=== PATIENT | male | born 1995 | race Two or more races ===

== ENCOUNTER 2017-08-03 10:33 | Emergency (ER) | payer BC ==
[2017-08-03] MEDS ORDERED: NS 0.9% 1000 ML* 2,000 ML IV ONE (11:04)
[2017-08-03 11:26] LABS: Hematocrit 44 % (42-52); Hemoglobin 15.4 g/dl (14.0-18.0); Mean Corpuscular HGB Conc 35 g/dl (31-36); Mean Corpuscular Hemoglobin 32 pg (27-31); Mean Corpuscular Volume 91 fL (80-94); Mean Platelet Volume 7 um3 (7.4-10.4); Red Blood Count 4.77 10^6/ul (4.0-5.4); Red Cell Distribution Width 13 % (10.5-15); White Blood Count 5.6 10^3/ul (3.5-10.8)
--- NOTE | 2017-08-03 11:34 | RAD ---
INDICATION: Syncope. COMPARISON: There are no prior studies available for comparison. TECHNIQUE: A portable view of the chest was obtained. FINDINGS: Cardiac and mediastinal contours appear to be within normal limits. The lungs are clear. No pleural effusion is seen. IMPRESSION: NO EVIDENCE FOR ACUTE DISEASE.
[2017-08-03 11:39] LABS: ALT 12 U/L (7-52); AST 18 U/L (13-39); Albumin 4.9 g/dL (3.2-5.2); Alkaline Phosphatase 63 U/L (34-104); Anion Gap 8 mmol/L (2-11); BUN/Creatinine Ratio 14.8 (8-20); Blood Urea Nitrogen 12 mg/dL (6-24); C Reactive Protein < 1.00 mg/L (< 5.00); CO2 Carbon Dioxide 26 mmol/L (22-32); Calcium 9.6 mg/dL (8.6-10.3); Chloride 103 mmol/L (101-111); EGFR African American 154.7 (>60); EGFR Non-African American 120.3 (>60); Globulin 2.6 g/dL (2-4); Glucose 90 mg/dL (70-100); Lipase 36 U/L (11.0-82.0); Magnesium 2.2 mg/dL (1.9-2.7); Potassium 3.7 mmol/L (3.5-5.0); Sodium 137 mmol/L (133-145); Total Protein 7.5 g/dL (6.4-8.9)
[2017-08-03 12:17] LABS: Urine Bilirubin Negative (Negative); Urine Glucose Negative (Negative); Urine Nitrite Negative (Negative)
--- NOTE | 2017-08-03 13:40 | ED ---
Sadiq Lira Angela, scribed for Jeremy Hernandez MD on 08/03/17 at 1111 . Syncope/Near Syncope - HPI Summary HPI Summary: This pt is a 22 y/[facility] 0430 today. Pt reports he was sitting down reading late last night about [employer] and thought it was disgusting, he got anxious and nauseous. He states feeling light-headed and stood up, immediately after pt fell down and had a syncopal episode. Pt reports he woke up a few minutes later and he couldn' t move his arms for about 10 minutes. Pt notes that yesterday he had coffee and was all day hyperactive. He states that he usually doesn't drink coffee. Pt denies chest pain, abd pain, vomiting, visual changes, SOB. He endorses normal PO intake. He states having occasional heart palpitations but was told by his PCP it was normal. No PMHx. - History Of Current Complaint Chief Complaint: EDSyncope Time Seen by Provider: 08/03/17 10:50 Hx Obtained From: Patient Onset/Duration: Sudden Onset Context: Unwitnessed Activity At Onset: Other - reading "something disgusting" Associated Signs And Symptoms: Palpitations - Allergies/Home Medications Allergies/Adverse Reactions: Allergies Allergy/AdvReac Type Severity Reaction Status Date / Time No Known Allergies Allergy Verified 10/06/16 21:40 PMH/Surg Hx/FS Hx/Imm Hx Endocrine/Hematology History: Denies: Hx Diabetes, Hx Anemia Cardiovascular History: Denies: Hx Hypertension Neurological History: Denies: Hx Seizures Psychiatric History: Reports: Hx Anxiety Denies: Hx Eating Disorder, Hx of Violent Episodes Against Others Infectious Disease History: Denies: Traveled Outside the [place] in Last 30 Days - Family History Known Family History: Positive: Diabetes - Social History Alcohol Use: None Substance Use Type: Reports: None Smoking Status (MU): Never Smoked Tobacco Review of Systems Negative: Fever, Chills Eyes: Negative Negative: Blurred Vision ENT: Negative Positive: Palpitations. Negative: Chest Pain Negative: Shortness Of Breath Positive: Nausea. Negative: Abdominal Pain, Vomiting Genitourinary: Negative Musculoskeletal: Negative Skin: Negative Positive: Syncope - 1 syncopal episode. Negative: Headache, Weakness, Numbness Positive: Anxious All Other Systems Reviewed And Are Negative: Yes Physical Exam Triage Information Reviewed: Yes Vital Signs On Initial Exam: Initial Vitals Temp Pulse Resp BP Pulse Ox 98.6 F 67 20 122/80 98 08/03/17 10:35 08/03/17 10:35 08/03/17 10:35 08/03/17 10:35 08/03/17 10:35 Vital Signs Reviewed: Yes Appearance: Positive: Well-Appearing, No Pain Distress Skin: Positive: Warm, Skin Color Reflects Adequate Perfusion, Dry Head/Face: Positive: Normal Head/Face Inspection Eyes: Positive: EOMI, WAQAR ENT: Positive: Normal ENT inspection Neck: Positive: Supple, Nontender Respiratory/Lung Sounds: Positive: Clear to Auscultation, Breath Sounds Present Cardiovascular: Positive: RRR Abdomen Description: Positive: Nontender, Soft Bowel Sounds: Positive: Present Musculoskeletal: Positive: Normal, Strength/ROM Intact Neurological: Positive: Normal, Sensory/Motor Intact, Alert, Oriented to Person Place, Time Psychiatric: Positive: Affect/Mood Appropriate Diagnostics - Vital Signs Vital Signs Temp Pulse Resp BP Pulse Ox 08/03/17 10:35 98.6 F 67 20 122/80 98 - Laboratory Lab Results: Lab Results 08/03/17 08/03/17 08/03/17 Range/Units 11:06 11:06 11:06 WBC 5.6 (3.5-10.8) 10^3/ul RBC 4.77 (4.0-5.4) 10^6/ul Hgb 15.4 (14.0-18.0) g/dl Hct 44 (42-52) % MCV 91 (80-94) fL MCH 32 H (27-31) pg MCHC 35 (31-36) g/dl RDW 13 (10.5-15) % Plt Count 158 (150-450) 10^3/ul MPV 7 L (7.4-10.4) um3 Neut % (Auto) 63.7 (38-83) % Lymph % (Auto) 26.8 (25-47) % Cascade % (Auto) 8.5 (1-9) % Eos % (Auto) 0.4 (0-6) % Baso % (Auto) 0.6 (0-2) % Absolute Neuts (auto) 3.6 (1.5-7.7) 10^3/ul Absolute Lymphs (auto) 1.5 (1.0-4.8) 10^3/ul Absolute Monos (auto) 0.5 (0-0.8) 10^3/ul Absolute Eos (auto) 0 (0-0.6) 10^3/ul Absolute Basos (auto) 0 (0-0.2) 10^3/ul Absolute Nucleated RBC 0 10^3/ul Nucleated RBC % 0.1 INR (Anticoag Therapy) 1.06 (0.89-1.11) APTT 25.4 L (26.0-36.3) seconds Sodium 137 (133-145) mmol/L Potassium 3.7 (3.5-5.0) mmol/L Chloride 103 (101-111) mmol/L Carbon Dioxide 26 (22-32) mmol/L Anion Gap 8 (2-11) mmol/L BUN 12 (6-24) mg/dL Creatinine 0.81 (0.67-1.17) mg/dL Est GFR ( Amer) 154.7 (>60) Est GFR (Non-Af Amer) 120.3 (>60) BUN/Creatinine Ratio 14.8 (8-20) Glucose 90 (70-100) mg/dL Lactic Acid (0.5-2.0) mmol/L Calcium 9.6 (8.6-10.3) mg/dL Magnesium 2.2 (1.9-2.7) mg/dL Total Bilirubin 1.40 H (0.2-1.0) mg/dL AST 18 (13-39) U/L ALT 12 (7-52) U/L Alkaline Phosphatase 63 (34-104) U/L Troponin I 0.00 (<0.04) ng/mL C-Reactive Protein < 1.00 (< 5.00) mg/L Total Protein 7.5 (6.4-8.9) g/dL Albumin 4.9 (3.2-5.2) g/dL Globulin 2.6 (2-4) g/dL Albumin/Globulin Ratio 1.9 (1-3) Lipase 36 (11.0-82.0) U/L TSH 1.70 (0.34-5.60) mcIU/mL Urine Color Urine Appearance Urine pH (5-9) Ur Specific [place] (1.010-1.030) Urine Protein (Negative) Urine Ketones (Negative) Urine Blood (Negative) Urine Nitrate (Negative) Urine Bilirubin (Negative) Urine Urobilinogen (Negative) Ur Leukocyte Esterase (Negative) Urine Glucose (Negative) 08/03/17 08/03/17 Range/Units 11:06 11:48 WBC (3.5-10.8) 10^3/ul RBC (4.0-5.4) 10^6/ul Hgb (14.0-18.0) g/dl Hct (42-52) % MCV (80-94) fL MCH (27-31) pg MCHC (31-36) g/dl RDW (10.5-15) % Plt Count (150-450) 10^3/ul MPV (7.4-10.4) um3 Neut % (Auto) (38-83) % Lymph % (Auto) (25-47) % Cascade % (Auto) (1-9) % Eos % (Auto) (0-6) % Baso % (Auto) (0-2) % Absolute Neuts (auto) (1.5-7.7) 10^3/ul Absolute Lymphs (auto) (1.0-4.8) 10^3/ul Absolute Monos (auto) (0-0.8) 10^3/ul Absolute Eos (auto) (0-0.6) 10^3/ul Absolute Basos (auto) (0-0.2) 10^3/ul Absolute Nucleated RBC 10^3/ul Nucleated RBC % INR (Anticoag Therapy) (0.89-1.11) APTT (26.0-36.3) seconds Sodium (133-145) mmol/L Potassium (3.5-5.0) mmol/L Chloride (101-111) mmol/L Carbon Dioxide (22-32) mmol/L Anion Gap (2-11) mmol/L BUN (6-24) mg/dL Creatinine (0.67-1.17) mg/dL Est GFR ( Amer) (>60) Est GFR (Non-Af Amer) (>60) BUN/Creatinine Ratio (8-20) Glucose (70-100) mg/dL Lactic Acid 1.4 (0.5-2.0) mmol/L Calcium (8.6-10.3) mg/dL Magnesium (1.9-2.7) mg/dL Total Bilirubin (0.2-1.0) mg/dL AST (13-39) U/L ALT (7-52) U/L Alkaline Phosphatase (34-104) U/L Troponin I (<0.04) ng/mL C-Reactive Protein (< 5.00) mg/L Total Protein (6.4-8.9) g/dL Albumin (3.2-5.2) g/dL Globulin (2-4) g/dL Albumin/Globulin Ratio (1-3) Lipase (11.0-82.0) U/L TSH (0.34-5.60) mcIU/mL Urine Color Straw Urine Appearance Clear Urine pH 7.0 (5-9) Ur Specific [place] 1.006 L (1.010-1.030) Urine Protein Negative (Negative) Urine Ketones Negative (Negative) Urine Blood Negative (Negative) Urine Nitrate Negative (Negative) Urine Bilirubin Negative (Negative) Urine Urobilinogen Negative (Negative) Ur Leukocyte Esterase Negative (Negative) Urine Glucose Negative (Negative) Result Diagrams: 08/03/17 11:06 08/03/17 11:06 Lab Statement: Any lab studies that have been ordered have been reviewed, and results considered in the medical decision making process. - Radiology Chest XR Xray Interpretation: No Acute Changes - IMPRESSION: No evidence for acute disease. ED physician has reviewed this radiology report and agrees. Radiology Interpretation Completed By: Radiologist - EKG 11:24 Cardiac Rate: NL - 66 bpm EKG Rhythm: Sinus Rhythm Ectopy: None EKG Interpretation: ST elevation in V2, V3 which appears to be early repolarization. Re-Evaluation - Re-Evaluation First Eval Re-Evaluation Time: 13:25 Comment: I reviewed the results with the pt. Course/Dx Assessment/Plan: This pt is a 22 y/[facility] [place] at 0430 today. Pt reports he was sitting down reading late last night about [employer] and thought it was disgusting, he got anxious and nauseous. He states feeling light-headed and stood up, immediately after pt fell down and had a syncopal episode. Pt reports he woke up a few minutes later and he couldn't move his arms for about 10 minutes. Pt notes that yesterday he had coffee and was all day hyperactive. He states that he usually doesn't drink coffee. Labs, chest XR, and EKG were obtained. In the ED course, pt was given IV fluids. Chest XR reveals no evidence for acute disease. BP noted and advised to follow up with his PCP. Medications reviewed. DISCUSSED RESULTS WITH PATIENT. PATIENT DOES NOT NORMALLY DRINK COFFEE; HE DRANK COFFEE AND THEN STAYED UP ALL NIGHT, HE DID NOT EAT AND BELIEVES HE WAS DEHYDRATED. HE PASSED OUT UPON ARISING FROM SITTING. WELL IN ED. - Diagnoses Provider Diagnoses: Syncope Discharge - Discharge Plan Condition: Stable Disposition: HOME Patient Education Materials: Syncope (ED) Referrals: [facility] [Primary Care Provider] - Additional Instructions: FOLLOW UP WITH YOUR DOCTOR. RETURN TO THE EMERGENCY DEPARTMENT FOR ANY WORSENING OF YOUR CONDITION; CHEST PAIN, YOU FEEL LIKE YOU ARE GOING TO PASS OUT, SHORTNESS OF BREATH OR QUESTIONS OR CONCERNS. The documentation as recorded by the Sadiq puente Angela accurately reflects the service I personally performed and the decisions made by me, Jeremy Hernandez MD.
[2017-08-03 14:02] VITALS: BP 108/68
== END 2017-08-03 14:06 | disposition home or self-care (01) ==
LOC: ED 10:33
DX: R55 Syncope and collapse (principal); F41.9 Anxiety disorder, unspecified
CPT/HCPCS: 36415; 71010; 80053; 81003; 83605; 83690; 83735; 84443; 84484; 85025; 85610; 85730; 86140; 93005; 99282

== ENCOUNTER 2018-08-31 20:24 | Emergency (ER) | payer BC ==
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
[2018-08-31 22:54] VITALS: BP 123/81
== END 2018-08-31 22:53 | disposition home or self-care (01) ==
LOC: ED 20:24
DX: F43.20 Adjustment disorder, unspecified (principal); F41.9 Anxiety disorder, unspecified; F32.9 Major depressive disorder, single episode, unspecified
CPT/HCPCS: 99284